=== PATIENT | male | born 1990 | race African-American/Black ===

== ENCOUNTER 2016-10-31 12:48 | Emergency (ER) | payer SELFPAY ==
[2016-10-31] MEDS ORDERED: KETOROLAC 30 MG/1 ML ONE (13:37)
== END 2016-10-31 15:40 | disposition home or self-care (01) ==
LOC: ED 12:48
DX: G89.29 Other chronic pain (principal); M25.561 Pain in right knee
CPT/HCPCS: 99284

== ENCOUNTER 2016-11-07 13:19 | Emergency (ER) | payer SELFPAY ==
[~2016-11-07] VITALS: Ht 182.9 cm; Wt 75.6 kg
[2016-11-07 13:20] VITALS: BP 128/80
[2016-11-07] MEDS ORDERED: KETOROLAC 30 MG/1 ML ONE (14:29)
[2016-11-07] MEDS ORDERED: KETOROLAC 30 MG/1 ML IM ONE (14:30)
== END 2016-11-07 14:37 | disposition home or self-care (01) ==
LOC: ED 14:31
DX: M25.561 Pain in right knee (principal); X58.XXXA Exposure to other specified factors, initial encounter; Y93.89 Activity, other specified; Y99.8 Other external cause status; Y92.009 Unspecified place in unspecified non-institutional (private) residence as the place of occurrence of the external cause
CPT/HCPCS: 96372; 99283; J1885